=== PATIENT | female | born 1980 | race Caucasian/White ===

== ENCOUNTER 2016-12-22 17:57 | Emergency (ER) | payer MEDICAID ==
[~2016-12-22] VITALS: Ht 160 cm; Wt 81.8 kg
[~2016-12-22 17:57] MED LIST: ACET325T51 PO; AMIT50TA3 PO; BACL10TA PO; FLUT1DIS ORAL INH; HYDR25TA85 PO; LANS30CA58 PO; ONDA-55 PO; PREG50CA PO
[2016-12-22 18:00] VITALS: Ht 160 cm; Wt 81.8 kg
--- OUTSIDE RECORDS SUMMARY | 2016-12-22 18:01 | XMS REPORT | Continuity of Care Document ---
Author Author [facility] Organization [facility] Address Unknown Phone Unavailable Allergies Active Description Code Type Severity Reaction Onset Reported/Identified Relationship to Patient Clinical Status Yes Maalox Antacid Drug Allergy N/A Adverse Reaction 11/18/2009 Yes Penicillins Drug Allergy N/A Adverse Reaction 11/18/2009 Yes Pepto-Bismol Drug Allergy N/A Adverse Reaction 11/18/2009 Yes No Known Food Allergies Food Allergy N/A N/A 02/09/2014 Medications Problems Date Dx Coded Attending Type Code Diagnosis Diagnosed By 02/09/2014 Gentry Hercules DO Final 599.0 URINARY TRACT INF NOS 02/09/2014 Gentry Hercules DO Admitting 625.9 FE GENITAL SYMPTOMS NOS 02/09/2014 Gentry Hercules DO 788.1 DYSURIA Procedures Results Encounters ACCT No. Visit Date/Time Discharge Status Pt. Type Provider Facility Loc./Unit Complaint [id number] 08/05/2012 17:09:00 2011 18:25:00 DIS Emergency Bailee BATISTA, Arabella Lazo [facility] AYA[place]
[2016-12-22] MEDS ORDERED: NORMAL SALINE 1,000 ML IV ONE (18:10)
--- NOTE | 2016-12-22 18:27 | ERPDOC ---
Departure Disposition Decision Date: Dec 22, 2016 Disposition Decision Time: 20:37 Disposition: 01 DISCHARGED HOME, SELF-CARE Impression Impression Impression: Primary Impression: Abdominal pain Abdominal location: generalized Qualified Codes: R10.84 - Generalized abdominal pain Severity: Moderate Condition: Improved Seen By: Physician only Referrals: FERNANDO KEENAN APRN (Family) 1 Week Patient Instructions: Abdominal Pain (ED) Problems/Meds/Labs Reviewed?: Yes Medications reviewed and manag: Yes Additional Instructions: We have evaluated you for causes of abdominal pain. We did not find a serious or life-threatening cause. Because the medication for 'abdominal migraine's helped tonight, you should consider this with your doctor for future treatment. Follow up with your doctor later this week. Follow up care ordered?: Yes Mental Status: Alert, Oriented HPI - Abdominal Pain General Chief Complaint: Abdominal Pain Stated Complaint: VOMITING/DIFFICULTY BREATHING Time Seen by Provider: 18:10 Source: patient, family History/Exam Limitations: no limitations HPI - Abdominal Pain Initial Comments 36yo woman presents to the ER with abdominal pain tonight. Pt has had pain since 1700 last night; has only tried zofran for the pain. Was seen by [facility] this AM and given a phenergan shot; instructed to f/u with them around 1300 but failed to do so. Presents here with 'intractible' vomiting, but has not vomited since checking in. Pt denies ever having similar sx previously. Pt has been dx'ed with H pylori gastritis, but did not take the meds because ' the pills were too big to swallow'. Occurred At: home Onset: Rapid Duration: 12-24 hrs Pain Scale: Now & Worst: 8/10 Quality: cramping, sharpness, stabbing Location: RLQ, LLQ, epigastric, generalized abdomen Associated Symptoms: nausea/vomiting Hx of Similar Symptoms: No Allergies: Coded Allergies: Penicillins (Verified Allergy, Mild, RASH, 09/22/16) Past History Patient Medical History (1) Helicobacter pylori gastritis Past Medical History Respiratory: asthma GI: gallbladder disease Female: other Neurological: fibromyalgia Psychological: ADHD, anxiety, bipolar, schizophrenia Surgical History General: gallbladder Reproductive/: other Family History Family PMH: FOUND: bipolar Vaccines Hx Influenza Vaccination: No (PT REFUSES ) Hx Pneumococcal Vaccination: No Hx Tetanus, Diptheria, Pertuss: Yes Social History Substance Use Type: former substance user Alcohol Intake: none Sexuality: male partner Review of Systems GI Upper Abdomen: heartburn/indigestion, nausea, pain, vomiting, DENIES: dysphagia , food intolerances, hematemesis Lower Abdomen: diarrhea (Chronic), pain, DENIES: blood in stool, sejal-colored stools, constipation, melena, painful BM All other Systems All Other Systems: Reviewed and Negative Physical Exam General General Nourishment: well nourished, well developed, appears stated age, no acute distress, adult, obese General Body Habitus: disheveled Vitals and Pain First Documented Vital Signs Date Time Temp Pulse Resp B/P Pulse Ox O2 Delivery O2 Flow Rate FiO2 12/22/16 18:00 98.6 93 18 101/69 100 Room Air Weight: Kilograms: 81.820 Height (feet): 5 Height (inches): 3.00 Triage Pain Scale: RN VS reviewed by Provider: Yes Normal Exams: Head: Normocephalic w/o trauma Eyes: Pupils are PERRLA w/ EOMI, No scleral icterus, irritation ENMT: No facial trauma, nasal exudates, pharyngeal erythema Neck: Full range of motion, without adenopathy, JVD Lymphatic: No lymphadenopathy Musculoskeletal: No tenderness, or deformity noted Integumentary: No rashes, hives, or bruising noted Neurologic: Patient is alert, and oriented Respiratory (brief) Respiratory: FOUND: clear all garrison, equal bilaterally, symmetrical, NOT FOUND : rales, wheezes Cardiovascular (brief) Cardiac: FOUND: regular rate, regular rhythm, NOT FOUND: click, gallop, murmur , pedal edema, peripheral edema, rub Capillary Refill: <2 sec Pulses: all distal extremities, equal, strong Abdomen (brief) Abdominal Brief: FOUND: bowel normo active x4, soft, tender (Diffuesely ), NOT FOUND: distended, hepatosplenomegaly, pulsatile mass Psychiatric (brief) Psychiatric Brief: FOUND: alert, attentive, oriented, NOT FOUND: normal affect (Labile) Differential Diagnoses Considering: Appendicitis, Biliary Colic, Bowel Obstruction, Cholecystitis, Constipation, Diverticulitis, DKA, Ectopic , Gastroenteritis, GERD, GI Bleed, IBS, Ileus, Pancreatitis, Pneumonia, Pyelonephritis, Renal Colic, UTI, Volvulus Progress Results/Orders Orders Procedure Category Date Status Time Iv Lock (Ed Only) EDM 12/22/16 Transmitted 18:10 Nothing By Mouth (Ed EDM 12/22/16 Transmitted Only) 18:10 Cbc W/Auto LAB 12/22/16 Complete Diff-Reflex Manual 18:10 Bmp - Basic Metabolic LAB 12/22/16 Complete Panel 18:10 Lipase LAB 12/22/16 Complete 18:10 Normal Saline (Normal PHA 12/22/16 Complete Saline Iv) 18:10 LAB 12/22/16 Complete Qualitative, Serum 18:22 Ct Abd/Pelvis CT 12/22/16 Taken W/Contrast Only Ketorolac (Toradol) PHA 12/22/16 Complete 18:45 Ondansetron Inj PHA 12/22/16 Complete (Zofran) 18:45 Iohexol (Omnipaque) PHA 12/22/16 Complete 18:57 Normal Saline (Ns) PHA 12/22/16 Complete 18:58 Saline Flush (Iv PHA 12/22/16 Complete Flush) 18:58 UA, LAB 12/22/16 Complete Dip&Micro(Complete) & 18:55 Sumatriptan (Imitrex) PHA 12/22/16 Complete 20:15 Lab Results Laboratory Tests Test 12/22/16 18:40 12/22/16 18:55 White Blood Count 6.1T/MM3 Red Blood Count 3.99M/MM3 Hemoglobin 12.7GM/DL Hematocrit 37.2% Mean Corpuscular Volume 93.2UM3 Mean Corpuscular Hemoglobin 31.8UUG Mean Corpuscular Hemoglobin Concent 34.1GM/DL RDW Standard Deviation 43.1FL Platelet Count 201T/MM3 Mean Platelet Volume 10.0UM3 Immature Granulocyte % (Auto) 0.2% Neutrophils (%) (Auto) 82.1% Lymphocytes (%) (Auto) 14.2% Monocytes (%) (Auto) 3.1% Eosinophils (%) (Auto) 0.2% Basophils (%) (Auto) 0.2% Absolute Immature Granulocyte (auto 0.01T/MM3 Absolute Neutrophils (auto) 5.0T/MM3 Absolute Lymphocytes (auto) 0.9T/MM3 Absolute Monocytes (auto) 0.2T/MM3 Absolute Eosinophils (auto) 0.0T/MM3 Absolute Basophils (auto) 0.0T/MM3 Turbidity < 20 Sodium Level 141MEQ/L Potassium Level 3.5MEQ/L Chloride Level 106MEQ/L Carbon Dioxide Level 22MEQ/L Anion Gap 13MEQ/L Blood Urea Nitrogen 11.0MG/DL Creatinine 0.7MG/DL Glomerular Filtration Rate Calc 95 BUN/Creatinine Ratio 16RATIO Glucose Level 102MG/DL Calculated Osmolality 270MOSM/KG Calcium Level 8.9MG/DL Icterus Index < 2 Lipase 48U/L Human Chorionic Gonadotropin, Qual Negative Chemistry Specimen Hemolysis < 15 Urine Collection Type Cleancatch-midstream Urine Color Yellow Urine Turbidity Clear Urine pH 8.0 Urine Specific Aragon 1.010 Urine Protein 1+ Urine Glucose (UA) Negative Urine Ketones 1+ Urine Blood 2+ Urine Nitrite Negative Urine Bilirubin Negative Urine Urobilinogen 2.0EU/DL Urine Leukocyte Esterase Negative Urine RBC 0-1/HPF Urine WBC None seen/HPF Urine Squamous Epithelial Cells 5-10 Urine Bacteria Trace Urine Culture Indicated Cult not indicated Medications Current ED Medications Sodium Chloride (Normal Saline IV) 1,000 ml @ 0 mls/hr Q0M ONCE IV Last administered on 12/22/16 18:47; Start 12/22/16 at 18:10; Stop 12/22/16 at 18:12; Status DC Ketorolac Tromethamine (Toradol) 30 mg O ONCE IV Last administered on 18:49; Start 12/22/16 at 18:45; Stop 12/22/16 at 18:46; Status DC Ondansetron HCl (Zofran) 4 mg O ONCE IV Last administered on 12/22/16 18:49; Start 12/22/16 at 18:45; Stop 12/22/16 at 18:46; Status DC Iohexol 1 bottle 1 bottle STK-MED ONCE .ROUTE ; Start 12/22/16 at 18:57; Stop 12/22/16 at 18:58; Status DC Sodium Chloride (NS) 100 ml @ As Directed STK-MED ONCE .ROUTE ; Start 12/22/16 at 18:58; Stop 12/22/16 at 18:59; Status DC Sodium Chloride (Iv Flush) 10 ml STK-MED ONCE .ROUTE ; Start 12/22/16 at 18:58; Stop 12/22/16 at 18:59; Status DC Sumatriptan Succinate (Imitrex) 6 mg O ONCE SQ Last administered on 12/22/16t 20:22; Start 12/22/16 at 20:15; Stop 12/22/16 at 20:16; Status DC Progress Progress Pt has hematuria and ketones in the urine. Remainder of the exam without significant abn. CT abd/pelv unremarkable. Discussed use of imitrex for ' abdominal migraine'. Pt agrees. Pt states that she is improved following imitrex. Wants to go home. Discussed dx , prognosis, and treatment with pt. Pt voiced understanding. CT CT : CT: Abd/Pelvis IV contrast Interpretation: Abnormal (Hepatic hemangiomas), Reviewed Written Report PALOMA RODRIGUEZ DO Dec 22, 2016 18:27
[2016-12-22] MEDS ORDERED: GABA-338 PO (18:44)
[2016-12-22] MEDS ORDERED: ONDANSETRON 4mg/2ml INJECTION IV ONE (18:45)
[2016-12-22] MEDS ORDERED: KETOROLAC 30mg/ml INJECTION IV ONE (18:45)
[2016-12-22 18:46] LABS: BASOPHILS % (AUTO) 0.2 % (0-2); EOSINOPHILS % (AUTO) 0.2 % (0-4); HCT - HEMATOCRIT 37.2 % (36-46); HGB - HEMOGLOBIN 12.7 GM/DL (12-16); IMMATURE GRANULOCYTE # (AUTO) 0.01 T/MM3 (0.00-0.03); IMMATURE GRANULOCYTE % (AUTO) 0.2 % (0.0-0.5); LYMPHOCYTES # (AUTO) 0.9 T/MM3 (1-4.8); LYMPHOCYTES % (AUTO) 14.2 % (23-45); MEAN CORPUSCULAR HGB 31.8 UUG (26-34); MEAN CORPUSCULAR HGB CONC(MCHC 34.1 GM/DL (31-37); MEAN CORPUSCULAR VOLUME 93.2 UM3 (80-100); MONOCYTES # (AUTO) 0.2 T/MM3 (0-0.8); MONOCYTES % (AUTO) 3.1 % (0-9.0); NEUTROPHILS % (AUTO) 82.1 % (33-66); RED BLOOD COUNT 3.99 M/MM3 (4.00-5.20); WBC - WHITE BLOOD COUNT 6.1 T/MM3 (4.5-11.0)
[2016-12-22 18:56] LABS: ANION GAP 13 MEQ/L (5-15); BUN/CREATININE RATIO 16 RATIO (6-26); CALCIUM 8.9 MG/DL (8.4-10.2); CHLORIDE 106 MEQ/L (98-107); CO2 - CARBON DIOXIDE 22 MEQ/L (22-30); CREATININE 0.7 MG/DL (0.7-1.2); GLOMERULAR FILTRATION RATE 95; GLUCOSE 102 MG/DL (65-110); LIPASE 48 U/L (23-300); POTASSIUM 3.5 MEQ/L (3.6-5); SODIUM 141 MEQ/L (134-144)
[2016-12-22] MEDS ORDERED: IOHEXOL 300 MG/ML 100ml INJECTION ONE (18:57)
--- OUTSIDE RECORDS SUMMARY | 2016-12-22 18:57 | XMS REPORT | Continuity of Care Document ---
Author Author [facility] Organization [facility] Address Unknown Phone Unavailable Allergies Active Description [...] Status Pt. Type Provider Facility Loc./Unit Complaint [id number] 08/05/2012 17:09:00 2011 18:25:00 DIS Emergency Bailee BATISTA, Arabella Lazo [facility] [place]
[2016-12-22] MEDS ORDERED: NORMAL SALINE 100 ML ONE (18:58)
[2016-12-22] MEDS ORDERED: SALINE FLUSH 10ml SYRINGE ONE (18:58)
[2016-12-22 19:00] LABS: BLOOD, URINE 2+ (NEGATIVE); COLOR,URINE YELLOW (YELLOW); LEUKOCYTE ESTERASE ,URINE NEGATIVE (NEGATIVE); NITRITE,URINE NEGATIVE (NEGATIVE)
[2016-12-22 19:06] LABS: RBC,URINE 0-1 /HPF (0-3); WBC,URINE NONE SEEN /HPF (0-5)
[2016-12-22 19:07] LABS: BACTERIA,URINE TRACE (NEGATIVE)
[2016-12-22] MEDS ORDERED: SUMATRIPTAN 6 MG/0.5 ML INJECTION SQ ONE (20:15)
[2016-12-22 20:47] VITALS: BP 101/55; PULSE 78; RESP 16; TEMP 98.6; O2SAT 98
--- NOTE | 2016-12-23 08:00 | DI ---
Indication: ITS.REASON: DIFFUSE ABD PAIN PROCEDURE: CT ABD/PELVIS W/CONTRAST ONLY: Encounter: Initial Comparison: February 07, 2010 Technique: Axial CT images were performed through the abdomen and pelvis after the administration of intravenous contrast. Coronal and sagittal two-dimensional reformats. Automated Exposure Control and Iterative Reconstruction dose reducing techniques were utilized. Contrast: Omnipaque 300 100 mL Findings: The lung bases are clear. Area of possible fatty infiltration or hemangioma along the fissure for the falciform ligament. There are two additional low-attenuation foci in the right hepatic lobe that are stable since 2009 consistent with benign lesions. No bile duct dilatation. The gallbladder is absent. The spleen, pancreas and adrenal glands are within normal limits. The kidneys are normal. No abdominal or pelvic lymphadenopathy. Bladder is decompressed. Small amount of free pelvic fluid. Mild fluid in the endometrial canal. No evidence of a bowel obstruction. The appendix is normal. Some fluid-filled small bowel loops. Bone windows are unremarkable. Impression: No acute disease process seen. There is a preliminary report by [facility]. .
== END 2016-12-22 20:47 | disposition home or self-care (01) ==
LOC: ED 17:57
DX: R10.84 Generalized abdominal pain (principal); R31.9 Hematuria, unspecified
CPT/HCPCS: 74177; 80048; 81001; 83690; 84703; 85025; 96372; 96374; 96375; 99284; J1885; J2405; J3030; J7030; J7050; Q9967

== ENCOUNTER → 2017-02-12 | Outpatient (CLI) | payer MEDICAID ==
[~2017-02-12] MED LIST changes: -ACET325T51 PO; -AMIT50TA3 PO; +GABA-338 PO; -LANS30CA58 PO; -PREG50CA PO
== END ==
LOC: IMA 14:37
PROVIDERS: ATTEND Nurse Practitioner Family
DX: D48.61 Neoplasm of uncertain behavior of right breast (principal)